=== PATIENT | male | born 1955 | race Caucasian/White ===

== ENCOUNTER 2019-07-30 12:33 | Inpatient (IN) ==
[2019-07-30] MEDS ORDERED: LACTATED RINGERS 1,000 ML IV ONE (12:47)
[2019-07-30] MEDS ORDERED: ONDANSETRON 4 MG/2 ML VIAL IV ONE (12:47)
--- NOTE | 2019-07-30 12:56 | Emergency Department Note ---
Abdominal Pain HPI - General Chief Complaint: Abdominal Pain Stated Complaint: RLQpain, nausea vomiting SOB Time Seen by Provider: 07/30/19 12:43 Source: EMS Mode of arrival: EMS - History of Present Illness HPI Narrative: This patient started having right-sided abdominal pain yesterday associated with some nausea. 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 He is now a dialysis patient. No associated diarrhea. Pain is somewhat constant aching. He has had a kidney stone but has not have one that is been painful since his renal transplant. - Related Data Home Medications Medication Instructions Recorded Confirmed Lactobacillus acidophilus 10 1 tab PO .daily cap 11/14/14 07/30/19 billion cell capsule calcitriol 0.25 mcg capsule 0.25 mcg PO QDAY cap 11/14/14 07/30/19 cholecalciferol (vitamin D3) 125 5,000 unit PO QDAY cap 11/14/14 07/30/19 mcg (5,000 unit) capsule digoxin 125 mcg (0.125 mg) tablet 125 mcg PO WEEKLY tab 11/14/14 07/30/19 febuxostat 80 mg tablet 80 mg PO QDAY tab 11/14/14 07/30/19 glipizide 5 mg tablet 5 mg PO BID tab 11/14/14 07/30/19 urwztjpbpuq-hxudzjajx-ssg C-Mn 500 2 cap PO .daily cap 11/14/14 07/30/19 mg-400 mg capsule prednisone 10 mg tablet 15 mg PO QDAY tab 11/14/14 07/30/19 prenat.vits,ezequiel,gsa-bvsf-jgsxb 1 tab-cap PO QDAY tab 11/14/14 07/30/19 Metoprolol Succinate [Toprol Xl] 25 mg PO DAILY 01/20/17 07/30/19 budesonide-formoterol HFA 160 2 puff INHALATION BID 02/23/18 07/30/19 mcg-4.5 mcg/actuation aerosol inhaler apixaban 5 mg tablet 5 mg PO BID 03/24/19 07/30/19 Magnesium Oxide [Magnesium] 400 mg PO DAILY 07/30/19 07/30/19 Midodrine [Midodrine HCl] 5 mg PO DAILY 07/30/19 07/30/19 Midodrine [Midodrine HCl] 5 mg PO TIDP PRN 07/30/19 07/30/19 Pantoprazole [Protonix] 40 mg PO DAILY 07/30/19 07/30/19 Sevelamer Carbonate 800 mg PO BIDCC 07/30/19 07/30/19 Simvastatin [Zocor] 20 mg PO HS 07/30/19 07/30/19 Vit A,C & E/Lutein/Minerals 1 tab PO DAILY 07/30/19 07/30/19 [Ocuvite] Allergies Allergy/AdvReac Type Severity Reaction Status Date / Time morphine [MORPHINE] AdvReac Intermediate DECREASE Verified 03/24/19 09:16 RESPIRAITONS Review of Systems All systems ED: reviewed and negative except as stated. Abdominal Pain PMH - Past Medical History [facility] Narrative: Medical History (Last Reviewed 03/24/19 @ 09:18 by Lisa Dorado RN) Bladder trabeculation (Acute) Renal failure (Acute) Hx of malignant neoplasm of urinary organ (Acute) Kidney stones (Acute) Hydronephrosis (Acute) Past Surgical History (Last Reviewed 03/24/19 @ 09:18 by Lisa Dorado RN) Blood clot in vein (Acute) Hx of tonsillectomy (Acute) Renal transplant, status post (Acute) H/O lithotripsy (Acute) History of right hip replacement (Acute) History of appendectomy (Acute) H/O adenoidectomy (Acute) Family History (Last Reviewed 03/24/19 @ 09:18 by Lisa Dorado RN) Mother Malignant neoplasm of brain Sister Malignant neoplasm of breast Father Diabetes mellitus Brother Non-Hodgkin's lymphoma - Social History Smoking status: Former smoker Physical Exam Limitations: no limitations General appearance: alert Head: atraumatic Eye: Present: normal appearance ENT: Present: normal exam Neck: Present: normal inspection Chest: Present: normal inspection Respiratory: Present: normal lung sounds bilaterally Cardiovascular: Present: regular rate, normal rhythm, normal heart sounds Abdominal: Present: soft, tenderness, other (Massively obese). Absent: distention, guarding Abdominal tenderness: Present: diffuse, mild Neurological: Present: alert Psychiatric: Present: normal affect Skin: Present: warm, dry Course Vital Signs Blood Pressure 118/94 07/30/19 12:42 Pulse Oximetry (%) 94 07/30/19 12:42 Temperature 99.9 F H 07/30/19 17:20 Pulse Rate 85 07/30/19 16:14 Respiratory Rate 22 07/30/19 16:14 Blood Pressure 88/70 07/30/19 15:31 Pulse Oximetry (%) 96 07/30/19 16:14 Abdominal Pain - MDM Narrative Medical decision making narrative: This patient had a white count of 24,000 and a lactic acid of 8.7. CT scan of chest was suggestive of lower lobe infiltrates but not definite. There was also concern about a tumor in his renal transplant kidney. Also concerned about possible metastases in his lungs. Patient was cultured and treated with Levaquin vancomycin and Zosyn. I discussed this case with Dr. Reddy his camera repairman and Dr. Luo the hospitalist and he will be admitted to the ICU. - Lab Data Lab results reviewed: Yes I reviewed the patient's lab results. Result diagrams: 07/30/19 13:00 07/30/19 13:00 Lab Results 07/30/19 07/30/19 07/30/19 Range/Units 13:00 13:00 13:00 WBC 24.1 H (4.50-11.00) K/mcL RBC 4.37 L (4.63-6.08) M/mcL Hgb 12.6 L (13.7-17.5) g/dL Hct 41.2 (40.1-51.0) % MCV 94.3 (80.0-100.0) fL MCH 28.8 (26.0-34.0) pg MCHC 30.6 L (31.0-36.0) g/dL RDW 16.6 H (11.5-14.5) % Plt Count 222 (140-440) K/mcL MPV 9.7 (7.4-10.4) fL Gran % 88.1 H (38.0-78.0) % Lymph % (Auto) 3.5 L (15.5-49.0) % [place] % (Auto) 8.0 (1.0-12.0) % Eos % (Auto) 0.2 (0.0-7.0) % Baso % (Auto) 0.2 (0.0-2.0) % Gran # 21.27 H (1.80-8.00) K/mcL Lymph # (Auto) 0.85 L (1.50-4.80) K/mcL [place] # (Auto) 1.92 H (0.10-0.90) K/mcL Eos # (Auto) 0.04 (0.00-0.70) K/mcL Baso # (Auto) 0.05 (0.00-0.30) K/mcL Differential Comment VBG Lactic Acid 8.7 H* (0.5-2.0) mmol/L Sodium 138 (133-145) mmol/L Potassium 4.0 (3.3-5.1) mmol/L Chloride 90 L (96-108) mmol/L Carbon Dioxide 23 (22-30) mmol/L Anion Gap 25.0 H (8-16) BUN 52 H (8-23) mg/dl Creatinine 7.0 H* (0.7-1.2) mg/dl GFR Calculation 8 Glucose 114 H (70-105) mg/dL Calcium 9.6 (8.6-10.4) mg/dl Total Bilirubin 0.6 (0.0-1.0) mg/dL AST 23 (0-37) U/l ALT 13 (0-40) U/l Alkaline Phosphatase 72 (39-117) U/L Total Protein 7.6 (5.9-8.4) gm/dL Albumin 3.8 (3.2-5.2) gm/dL Globulin 3.8 H (2.2-3.7) gm/dL Albumin/Globulin Ratio 1.0 (1.0-2.3) Lipase 27 (7-60) U/L - Radiology Data Radiology results reviewed: Yes I reviewed the patient's radiology results. Disposition Pt seen by [facility] PATTERN[facility]KER/PA only: No Clinical Impression: Sepsis Disposition: Xfer As Inpt ([facility]) Condition: Fair Referrals: Nicol Mcdowell MD [Primary Care Provider] - Time of Disposition: 17:23
[2019-07-30 14:13] LABS: Basophils # (Auto) 0.05 K/mcL (0.00-0.30); Basophils % (Auto) 0.2 % (0.0-2.0); Eosinophils # (Auto) 0.04 K/mcL (0.00-0.70); Eosinophils % (Auto) 0.2 % (0.0-7.0); Granulocytes % (Auto) 88.1 % (38.0-78.0); Hematocrit 41.2 % (40.1-51.0); Hemoglobin 12.6 g/dL (13.7-17.5); Lymphocytes # (Auto) 0.85 K/mcL (1.50-4.80); Lymphocytes % (Auto) 3.5 % (15.5-49.0); Mean Cell Volume 94.3 fL (80.0-100.0); Mean Corpuscular HGB Conc 30.6 g/dL (31.0-36.0); Mean Platelet Volume 9.7 fL (7.4-10.4); Monocytes # (Auto) 1.92 K/mcL (0.10-0.90); Platelet Count 222 K/mcL (140-440); RBC 4.37 M/mcL (4.63-6.08); Red Cell Distribution Width 16.6 % (11.5-14.5); WBC 24.1 K/mcL (4.50-11.00)
[2019-07-30 14:14] LABS: ALT/SGPT 13 U/l (0-40); AST/SGOT 23 U/l (0-37); Albumin 3.8 gm/dL (3.2-5.2); Alkaline Phosphatase 72 U/L (39-117); Bilirubin,Total 0.6 mg/dL (0.0-1.0); Blood Urea Nitrogen 52 mg/dl (8-23); Calcium 9.6 mg/dl (8.6-10.4); Carbon Dioxide 23 mmol/L (22-30); Chloride 90 mmol/L (96-108); Globulin 3.8 gm/dL (2.2-3.7); Glomerular Filtration Rate 8; Glucose 114 mg/dL (70-105)
[2019-07-30] MEDS ORDERED: PIPERACILLIN SODIUM/TAZOBACTAM 3.375 GM in DEXTROSE 5% IN WATER 50 ML IV ONE (15:03)
[2019-07-30] MEDS ORDERED: LEVOFLOXACIN 750 MG/150 ML BAG IV ONE (15:03)
[2019-07-30] MEDS ORDERED: VANCOMYCIN 1,500 MG in 0.9 % SODIUM CHLORIDE 500 ML IV ONE (15:03)
--- NOTE | 2019-07-30 15:37 | Cat Scan Report ---
CLINICAL INFORMATION: Abdominal pain with elevated white blood cell count COMPARISON: Chest x-ray 01/29/2016. TECHNIQUE: Enteric contrast was utilized. 80 cc of Isovue-370 were injected intravenously, and 50 seconds later 2.5 mm helical slices were obtained from the lung apices through the subtrochanteric regions of the femurs. Following reconstruction, 2.5 mm sagittal, coronal and axial reformatted images were processed and reviewed at multiple windows and levels. 7 mm MIP reconstructions were obtained through the lungs to optimize nodule detection.The exam was performed using radiation dose optimization techniques including, but not limited to, automated exposure control, adjustment of the mA and/or kV according to patient size and use of iterative reconstruction technique. FINDINGS: Pulmonary parenchymal windows show moderate patchy atelectasis or, less likely, infiltrate in the posterior medial lower lobes. Multiple well-circumscribed nodules are predominantly within the right lower lobe but also scattered in the left lower and both upper lobes. They range up to 8 mm. These could represent granulomas or metastases from an unknown primary carcinoma. The mediastinal windows show the heart is moderately enlarged and with calcification in the mitral annulus and scattered calcific plaque in the coronary arteries. The noncontrast thoracic aorta and pulmonary arteries are normal in diameter. There is no adenopathy in the mediastinal hilar or axillary regions. The esophagus is grossly normal. Thyroid is unremarkable. Abdominal images show the noncontrasted gallbladder and bile ducts, liver, both adrenal glands, spleen, pancreas and aorta to be normal in size, configuration and attenuation without focal lesion. Severe bilateral renal atrophy compatible end-stage renal failure appreciated. There is a 16 mm simple cyst in the left kidney and a few smaller cysts in both kidneys. There is no free air, free fluid or adenopathy Pelvic images show urinary bladder is decompressed with diffuse wall thickening - likely artifact of under distention. Prostate and seminal vesicles are normal. An 11 x 4.5 cm renal transplant in the right iliac fossa appreciated. There are cluster of 3-4 nonobstructing stones in the inferior calyces ranging up to 1 cm. An 11 mm hyperdense lesion in the inferior pole right kidney is almost totally hyperdense cyst. A 4.2 cm simple cyst is seen medial superior pole of the transplant. A 3.3 cm indeterminate low-attenuation lesion is noted in the lateral superior pole. The stomach, small and large bowel are grossly normal. Bone windows show no focal osseous abnormality. Right total hip prostheses is anatomically aligned without loosening or infection. IMPRESSION: 1. Moderate regions of atelectasis or infiltrate in both posterior medial lower lobes. 2. Scattered well-defined nodules scattered throughout both lungs - predominantly in the right lower lobe. These could represent metastases from an unknown primary carcinoma or granulomas. 3. Severe bilateral renal atrophy compatible with end-stage renal failure. 4. Normal sized renal transplant seen in the right iliac fossa. Within the transplant, there is a 3.3 cm indeterminate low-attenuation lesion in the lateral superior pole. A 10 mm hyperdense lesion in the inferior pole may represent a hyperdense cyst or, less likely, a solid lesion. There is a 4.2 cm simple cyst in the medial superior pole. Suggest ultrasound renal transplant to evaluate whether the lesions are solid versus cystic. If any are solid, then a could represent primary renal cell carcinoma and account for pulmonary metastases 5. A cluster of 3-4 nonobstructing stones stones, ranging up to 1 cm, in the inferior calyx of the right renal transplant. 6. Moderate cardiomegaly. Interpreted and Authenticated by: Terence Black 07/30/19
[2019-07-30] MEDS ORDERED: LORazepam 2 MG/ML VIAL IV ONE (16:40)
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
[2019-07-30] MEDS ORDERED: VANCOMYCIN PER PHARMACY IV SCH (19:39)
[2019-07-30] MEDS ORDERED: LACTULOSE 20 GM/30 ML ORAL.SOL PO PRN (19:39)
[2019-07-30] MEDS ORDERED: IPRATROPIUM/ALBUTEROL 3 ML AMPUL.NEB NEB PRN (19:39)
[2019-07-30] MEDS ORDERED: ONDANSETRON 4 MG/2 ML VIAL IV PRN (19:39)
[2019-07-30] MEDS ORDERED: ACETAMINOPHEN 325 MG TABLET PO PRN (19:39)
[2019-07-30] MEDS ORDERED: HYDROcodone/APAP 5/325MG TABLET PO PRN (19:39)
[2019-07-30] MEDS ORDERED: DEXTROSE 50% 50 ML VIAL IV PRN (20:03)
[2019-07-30] MEDS ORDERED: DEXTROSE 31 GM ORAL.SUSP PO PRN (20:03)
[2019-07-30] MEDS ORDERED: SENNOSIDES 1 TABLET PO PRN (21:00)
[2019-07-30] MEDS ORDERED: HEPARIN 5,000 UNIT/ML VIAL SQ SCH (21:00)
[2019-07-30] MEDS: INSULIN LISPRO 1 UNIT/0.01 ML UNIT SQ SCH (22:36)
[2019-07-30] MEDS: 0.9 % SODIUM CHLORIDE 10 ML SYRINGE IV SCH (22:36)
[2019-07-30] MEDS: SIMVASTATIN 20 MG TABLET PO SCH (22:41)
[2019-07-30] MEDS: DOCUSATE SODIUM 100 MG CAPSULE PO SCH (22:41)
[2019-07-30] MEDS: APIXABAN 5 MG TABLET PO SCH (22:41)
[2019-07-31] MEDS: PIPERACILLIN SODIUM/TAZOBACTAM 2.25 GM in DEXTROSE 5% IN WATER 50 ML IV SCH ×2 (03:14→18:51)
[2019-07-31 05:14] LABS: Basophils # (Auto) 0.02 K/mcL (0.00-0.30); Basophils % (Auto) 0.1 % (0.0-2.0); Eosinophils # (Auto) 0.01 K/mcL (0.00-0.70); Eosinophils % (Auto) 0.1 % (0.0-7.0); Granulocytes % (Auto) 87.2 % (38.0-78.0); Hematocrit 37.7 % (40.1-51.0); Hemoglobin 11.3 g/dL (13.7-17.5); Lymphocytes % (Auto) 7.2 % (15.5-49.0); Mean Cell Volume 94.7 fL (80.0-100.0); Mean Platelet Volume 9.6 fL (7.4-10.4); Monocytes # (Auto) 0.82 K/mcL (0.10-0.90); Monocytes % (Auto) 5.4 % (1.0-12.0); Platelet Count 195 K/mcL (140-440); RBC 3.98 M/mcL (4.63-6.08); Red Cell Distribution Width 16.5 % (11.5-14.5); WBC 15.2 K/mcL (4.50-11.00)
[2019-07-31 05:37] LABS: ALT/SGPT 13 U/l (0-40); AST/SGOT 38 U/l (0-37); Albumin 3.2 gm/dL (3.2-5.2); Albumin/Globulin Ratio 0.8 (1.0-2.3); Alkaline Phosphatase 60 U/L (39-117); Bilirubin,Direct 0.2 mg/dL (0.0-0.3); Bilirubin,Total 0.5 mg/dL (0.0-1.0); Blood Urea Nitrogen 72 mg/dl (8-23); Carbon Dioxide 25 mmol/L (22-30); Chloride 92 mmol/L (96-108); Globulin 3.9 gm/dL (2.2-3.7); Glomerular Filtration Rate 6; Glucose 61 mg/dL (70-105); Lactate Dehydrogenase 325 U/L (94-250); Phosphorous 7.8 mg/dL (2.7-4.5); Triglycerides 181 mg/dl (<150); Uric Acid 2.7 mg/dL (2.5-8.0)
[2019-07-31] MEDS: 0.9 % SODIUM CHLORIDE 10 ML SYRINGE IV SCH ×3 (05:44→22:52)
[2019-07-31] MEDS: predniSONE 5 MG TABLET PO SCH (08:24)
[2019-07-31] MEDS: SEVELAMER 800 MG TABLET PO SCH ×2 (08:24→18:51)
[2019-07-31] MEDS: PANTOPRAZOLE 40 MG TABLET PO SCH (08:24)
--- NOTE | 2019-07-31 08:25 | Ultrasound Report ---
History: Transplanted kidney in the right side of the pelvis which contains an indeterminate low-attenuation lesion seen on a recent CT scan. Patient has multiple pulmonary nodules of undetermined etiology. FINDINGS: Patient was technically difficult to scan due to severe obesity. The atrophic [place] right kidney cannot be visualized. Left kidney is partially visualized contain several low-attenuation hypoechoic structures which are probably cysts. However, hypoechoic solid mass cannot be excluded. There also appears to be a nonobstructing stone in the midportion of the left kidney. No hydronephrosis is present in the left kidney. The patient has a transplanted kidney in the right side of the pelvis which is also very difficult to visualize due to patient body habitus. It contains several hypoechoic structures. The largest measures 3.2 x 3.2 x 4.2 cm. This is probably a cyst but a solid hypoechoic mass cannot be excluded. In the mid to upper portion of the transplanted kidney there is a 1 cm simple cyst. There are also several moderate size calculi in the collecting system of the right kidney which measure up to 2.4 cm. There is no hydronephrosis. The vessels to the transplanted kidney cannot be evaluated. IMPRESSION: Limited study due to patient body habitus. Hypoechoic 3.2 x 4.2 cm structure in the transplanted right kidney which is more likely a cyst than a neoplasm. Abdomen and pelvic MRI may be helpful for further evaluation. Atrophic [place] kidneys and nonvisualization of the right kidney and poor visualization of the left. There are cysts in the left kidney and a nonobstructing stone. A solid mass in the left kidney cannot be excluded. Interpreted and Authenticated by: Abel Ponce 07/31/19
[2019-07-31] MEDS: INSULIN LISPRO 1 UNIT/0.01 ML UNIT SQ SCH ×3 (08:28→18:49)
[2019-07-31] MEDS: MAGNESIUM OXIDE 400 MG TABLET PO SCH (09:48)
[2019-07-31] MEDS: VIT A,C & E/LUTEIN/MINERALS TABLET PO SCH (09:48)
[2019-07-31] MEDS: APIXABAN 5 MG TABLET PO SCH ×2 (09:48→21:47)
[2019-07-31] MEDS: DOCUSATE SODIUM 100 MG CAPSULE PO SCH ×2 (09:48→21:47)
[2019-07-31] MEDS: CALCITRIOL 0.25 MCG CAPSULE PO SCH (09:48)
[2019-07-31] MEDS: MIDODRINE 5 MG TABLET PO SCH (09:54)
[2019-07-31] MEDS: METOPROLOL SUCCINATE 25 MG TAB.XL.24H PO SCH (11:13)
--- NOTE | 2019-07-31 11:42 | Internal Med Progress Note ---
Medical - PN: Subj Patient information: Note initiated : 07/31/19 at 11:40 am Service Date, if different from initiated Date: [] Patient: Ivan Robles a 64 y/o M admitted on 07/30/19 for RLQpain, nausea vomiting SOB. Chief Complaint: [] Interval history: Mr. Robles is a 64 year old M with a history of end-stage renal disease, status post failed renal transplant, now on home hemodialysis, obstructive sleep apnea , chronic steroid use, type 2 diabetes, hyperlipidemia, atrial fibrillation on anticoagulation who presents the ED with about 1 days of illness. Patient dialyzed yesterday. He normally gets dialysis 5 days a week at home. Postdialysis he had some nausea with little bit of emesis. Started developing some pain in his abdomen following that. At about 430 this morning he had a temperature to 103.1. He became progressively weak. Initially his was going to drive him to the hospital, he is too weak to do so and fell a couple times eventually prompting a call to EMS. In the emergency department, the patient is afebrile, he has tachycardia with atrial fibrillation/RVR, blood pressures are low normal (which is normal for him, he uses midodrine to help sustain blood pressure). However white count was 24,000 and lactate was 8.7. There is concern for sepsis given his presentation and fever earlier in the morning. Given his vague abdominal complaints, CT scan of the abdomen and pelvis was done, chest was also included. Does have some patchy atelectatic/infiltrative changes in the bases, and findings of nodularity and cyst versus mass in his transplanted kidney. However no evidence of biliary disease, no diverticulitis, no abscesses noted. The patient overall feels weak. Not necessarily dyspneic. He has not had a bowel movement last couple of days. He has had no recent antibiotic exposures. No ill contacts. He did get a flu shot this year. He is currently on prednis one at 15 mg a day. They have been attempting to wean down his steroids after he went off immunosuppression following the failure of his transplanted kidney. They weaned it down to 5, he became symptomatic and they increased it to 20, which he took for 3 days, now is in the middle of 15 mg daily. Glucoses have been well controlled, hemoglobin A1c in the 6% range at last check. 3/2 Patient somewhat somnolent confused today. BUN and creatinine have risen overnight. Poor IV access. Difficulty in obtaining accurate blood pressure due to limitations of where the cuff can be placed. However patient is mentating even with low readings. Do not feel this represents hypotension secondary to s epsis, but is his usual state. Does use midodrine daily. Cultures negative so far. - Constitutional Vitals: Vital Signs Temp Pulse Resp BP Pulse Ox 100.2 F H 123 H 28 H 83/68 92 07/31/19 08:54 07/31/19 10:04 07/31/19 10:04 07/31/19 10:01 07/31/19 02:00 Period Temp Pulse Resp BP Sys/Valerio Pulse Ox Last 24 Hr 97.8 F-100.2 F 85-126 17-37 38-206/15-178 89-97 Intake and Output 07/30/19 07/31/19 07/31/19 21:59 05:59 13:59 Intake Total 940 50 Output Total 0 Balance 940 50 Weight 336 lb 9.6 oz 336 lb 9.6 oz Patient Weight 08/01/19 05:59 Weight 336 lb 9.6 oz Intake & Output: Intake & Output 07/30/19 07/31/19 07/31/19 21:59 05:59 13:59 Intake Total 940 50 Output Total 0 Balance 940 50 Weight 336 lb 9.6 oz 336 lb 9.6 oz Intake: IV 700 50 Zosyn 2.25 gm In Dextrose 5% in 50 Water 50 ml @ 100 mls/hr IV Q12H [facility] Rx#:[id number] Zosyn 3.375 gm In Dextrose 5% 50 in Water 50 ml @ 100 mls/hr IV ONCE ONE Rx#:[id number] Vancomycin 1,500 mg In Sodium 500 Chloride 0.9% 500 ml @ 333.3 mls/hr IV ONCE ONE Rx#: [id number] Oral 240 0 Output: Void Amount 0 Exam: General: Appears uncomfortable, in bed. Drifts off. Lower extremities tremulous. Chest: Bibasilar crackles, respirations are unlabored Cardiovascular: Regular with murmur, unchanged. Extremities: Left arm fistula intact Abdomen: Obese, soft, active bowel sounds Neuro: Drowsy, awakes, responses are mumbled at times. Daughter notes this is similar to when his BUN becomes elevated. Medical - PN: Obj Da - Labs CBC & Chem 7: 07/31/19 04:10 07/31/19 04:10 Labs: Abnormal Lab Results 07/31/19 07/31/19 07/30/19 04:10 04:10 20:25 WBC 15.2 H RBC 3.98 L Hgb 11.3 L Hct 37.7 L MCHC 30.0 L RDW 16.5 H Gran % 87.2 H Lymph % (Auto) 7.2 L Gran # 13.25 H Lymph # (Auto) 1.[address] [place] # (Auto) VBG Lactic Acid 3.0 H Potassium 6.1 H* Chloride 92 L Anion Gap 22.0 H BUN 72 H Creatinine 8.4 H* Glucose 61 L Phosphorus 7.8 H* Magnesium 2.8 H GGT 68 H AST 38 H Lactate Dehydrogenase 325 H Globulin 3.9 H Albumin/Globulin Ratio 0.8 L Triglycerides 181 H 07/30/19 07/30/19 07/30/19 13:00 13:00 13:00 WBC 24.1 H RBC 4.37 L Hgb 12.6 L Hct MCHC 30.6 L RDW 16.6 H Gran % 88.1 H Lymph % (Auto) 3.5 L Gran # 21.27 H Lymph # (Auto) 0.[address] [place] # (Auto) 1.92 H VBG Lactic Acid 8.7 H* Potassium Chloride 90 L Anion Gap 25.0 H BUN 52 H Creatinine 7.0 H* Glucose 114 H Phosphorus Magnesium GGT AST Lactate Dehydrogenase Globulin 3.8 H Albumin/Globulin Ratio Triglycerides Meds: Medications Acetaminophen (Tylenol) 650 mg PO Q6HP PRN; Protocol PRN Reason: Per Pain Protocol/Fever > 101 Hydrocodone Bitart/Acetaminophen ([place] 5/325mg) 1 tab PO Q4HP PRN; Protocol PRN Reason: Per Pain Protocol Albuterol/Ipratropium (Duoneb) 3 ml NEB Q4HP PRN PRN Reason: Dyspnea Apixaban (Eliquis) 5 mg PO BID [facility] Last Admin: 07/31/19 09:48 Dose: 5 mg Documented by: Calcitriol (Rocaltrol) 0.25 mcg PO QDAY [facility] Last Admin: 07/31/19 09:48 Dose: 0.25 mcg Documented by: Dextrose (Dextrose 50%) 0 ml IV UD PRN PRN Reason: Hypoglycemia Diagnostic Test (Pha) (Accu-Chek) 1 each FS ACHS [facility] Last Admin: 07/31/19 08:25 Dose: 1 each Documented by: Docusate Sodium (Colace) 100 mg PO BID [facility] Last Admin: 07/31/19 09:48 Dose: 100 mg Documented by: Glucose (Insta-Glucose) 15 gm PO PRN PRN PRN Reason: Hypoglycemia Levofloxacin (Levaquin) 500 mg in 100 mls @ 100 mls/hr IV Q48H [facility]; Protocol Piperacillin Sod/Tazobactam (Sod 2.25 gm/ Dextrose) 50 mls @ 100 mls/hr IV Q12H [facility]; Protocol Last Infusion: 07/31/19 03:44 Dose: Infused Documented by: Insulin Human Lispro (Humalog) 0 unit SQ [facility]; Protocol Last Admin: 07/31/19 08:28 Dose: Not Given Documented by: Lactulose (Cephulac) 10 gm PO DAILYP PRN PRN Reason: Constipation Magnesium Oxide (Magnesium Oxide) 400 mg PO DAILY [facility] Last Admin: 07/31/19 09:48 Dose: 400 mg Documented by: Metoprolol Succinate (Toprol Xl) 25 mg PO DAILY [facility] Last Admin: 07/31/19 11:13 Dose: Not Given Documented by: Midodrine (Midodrine Hcl) 5 mg PO DAILY [facility] Last Admin: 07/31/19 09:54 Dose: 5 mg Documented by: Multivitamins/Minerals (Ocuvite) 1 tab PO DAILY [facility] Last Admin: 07/31/19 09:48 Dose: 1 tab Documented by: Ondansetron HCl (Zofran) 4 mg IV Q4HP PRN; Protocol PRN Reason: Nausea And Vomiting Pantoprazole Sodium (Protonix) 40 mg PO ACB [facility] Last Admin: 07/31/19 08:24 Dose: 40 mg Documented by: Prednisone (Prednisone) 15 mg PO QAMCC [facility] Last Admin: 07/31/19 08:24 Dose: 15 mg Documented by: Senna (Senokot) 2 tab PO HSP PRN PRN Reason: Constipation Sevelamer Carbonate (Renvela) 800 mg PO BIDCC [facility] Last Admin: 07/31/19 08:24 Dose: 800 mg Documented by: Simvastatin (Zocor) 20 mg PO [facility] Last Admin: 07/30/19 22:41 Dose: 20 mg Documented by: Sodium Chloride (Saline Flush) 10 ml IV Q8 [facility] Last Admin: 07/31/19 05:44 Dose: 10 ml Documented by: Vancomycin HCl (Vancomycin Per Pharmacy) 1 order IV UD [facility]; Protocol - Impressions Renal U/S IMPRESSION: -Limited study due to patient body habitus. -Hypoechoic 3.2 x 4.2 cm structure in the transplanted right kidney which is more likely a cyst than a neoplasm. Abdomen and pelvic MRI may be helpful for further evaluation. -Atrophic [place] kidneys and nonvisualization of the right kidney and poor visualization of the left. There are cysts in the left kidney and a nonobstructing stone. A solid mass in the left kidney cannot be excluded. Medical - PN: A/P - Time Spent With Patient Total time spent is greater than 50% in coordination of care (as documented) at patient's floor/unit and/or counseling patient: - Narrative A/P Narrative: 64-year-old male with end-stage renal disease, failed transplant, still on prednisone presents with fever, found to have leukocytosis and lactate of 8.7. #Rule out septic shock. Improving. White count down to 15,000, lactate improved. Concern that his leukocytosis, fever and lactate represent infection, which would be septic shock with evidence of endorgan dysfunction (lactate elevation). Possible pneumonia, though he does not have prominent pulmonary symptoms. Bloodstream infection certainly concerning with his 5 times a week hemodialysis. He dialyzes with a shunt on the left arm, which has no surrounding erythema or evidence of infection. No evidence of biliary disease on scanning, no other intra-abdominal process noted. He is not having diarrhea nor has inflammatory change in the colon, but always concerned about C. difficile with a white count is high. Patient did not receive full 30 mL/KG resuscitation secondary to clinician judgment in setting of end-stage renal disease and patient who anuric and at high risk for respiratory failure. He received modified bolus in the ED. Sepsis reperfusion exam performed 17:15hrs #End-stage renal disease. Dialyzes 5 times a week at home with hemodialysis. Dr. Reddy's been consulted from the ED. #Atrial fibrillation. On metoprolol and weekly digoxin for rate control. #Hypotension. Patient takes midodrine daily with up to 3 other doses a day as needed for low blood pressure. #Abnormal CT. Cyst versus mass and transplanted kidney, scattered nodules in the lungs, particularly on right. -Ultrasound of transplanted kidney with evidence of cyst and not mass -We will likely need follow-up CT in convalescence #Type 2 diabetes mellitus on glipizide at home with good control #Obstructive sleep apnea. On CPAP at home. Plan: Follow-up blood cultures, no growth today No urine culture, patient is anuric Continue vancomycin, levofloxacin and pip/tazo Hemodialysis today for volume overload and electrolyte abnormalities Reevaluate mental status after dialysis Continue metoprolol and apixaban for atrial fibrillation Holding digoxin for now Home CPAP Renal diet Accu-Cheks a.m. sliding scale insulin Continue home daily Midodrine Prophylaxis: Home apixaban CODE STATUS: Full code
[2019-07-31] MEDS ORDERED: MIDODRINE 5 MG TABLET PO PRN (12:29)
--- NOTE | 2019-07-31 13:51 | Internal Med Progress Note ---
Medical - PN: Subj Patient information: Note initiated : 07/31/19 at 1:49 pm Service Date, if different from initiated Date: [] Patient: Ivan Robles a 64 y/o M admitted on 07/30/19 for RLQpain, nausea vomiting SOB. Chief Complaint: [] Interval history: Mr. Robles is a 64 year old M with a history of end-stage renal disease, status post failed renal transplant, now on home hemodialysis, obstructive sleep apnea , chronic steroid use, type 2 diabetes, hyperlipidemia, atrial fibrillation on anticoagulation who presents the ED with about 1 days of illness. Patient dialyzed yesterday. He normally gets dialysis 5 days a week at home. Postdialysis he had some nausea with little bit of emesis. Started developing some pain in his abdomen following that. At about 430 this morning he had a temperature to 103.1. He became progressively weak. Initially his was going to drive him to the hospital, he is too weak to do so and fell a couple times eventually prompting a call to EMS. In the emergency department, the patient is afebrile, he has tachycardia with atrial fibrillation/RVR, blood pressures are low normal (which is normal for him, he uses midodrine to help sustain blood pressure). However white count was 24,000 and lactate was 8.7. There is concern for sepsis given his presentation and fever earlier in the morning. Given his vague abdominal complaints, CT scan of the abdomen and pelvis was done, chest was also included. Does have some patchy atelectatic/infiltrative changes in the bases, and findings of nodularity and cyst versus mass in his transplanted kidney. However no evidence of biliary disease, no diverticulitis, no abscesses noted. The patient overall feels weak. Not necessarily dyspneic. He has not had a bowel movement last couple of days. He has had no recent antibiotic exposures. No ill contacts. He did get a flu shot this year. He is currently on prednis one at 15 mg a day. They have been attempting to wean down his steroids after he went off immunosuppression following the failure of his transplanted kidney. They weaned it down to 5, he became symptomatic and they increased it to 20, which he took for 3 days, now is in the middle of 15 mg daily. Glucoses have been well controlled, hemoglobin A1c in the 6% range at last check. 3/2 Patient somewhat somnolent confused today. BUN and creatinine have risen overnight. Poor IV access. Difficulty in obtaining accurate blood pressure due to limitations of where the cuff can be placed. However patient is mentating even with low readings. Do not feel this represents hypotension secondary to s epsis, but is his usual state. Does use midodrine daily. Cultures negative so far. - Constitutional Vitals: Vital Signs Temp Pulse Resp BP Pulse Ox 100.2 F H 123 H 28 H 83/68 92 07/31/19 08:54 07/31/19 10:04 07/31/19 10:04 07/31/19 10:01 07/31/19 02:00 Period Temp Pulse Resp BP Sys/Valerio Pulse Ox Last 24 Hr 97.8 F-100.2 F 85-126 17-37 38-206/15-178 89-97 Intake and Output 07/30/19 07/31/19 07/31/19 21:59 05:59 13:59 Intake Total 940 50 Output Total 0 Balance 940 50 Weight 152.679 kg 152.679 kg Patient Weight 08/01/19 05:59 Weight 152.679 kg Intake & Output: Intake & Output 07/30/19 07/31/19 07/31/19 21:59 05:59 13:59 Intake Total 940 50 Output Total 0 Balance 940 50 Weight 152.679 kg 152.679 kg Intake: IV 700 50 Zosyn 2.25 gm In Dextrose 5% in 50 Water 50 ml @ 100 mls/hr IV Q12H [facility] Rx#:[id number] Zosyn 3.375 gm In Dextrose 5% 50 in Water 50 ml @ 100 mls/hr IV ONCE ONE Rx#:[id number] Vancomycin 1,500 mg In Sodium 500 Chloride 0.9% 500 ml @ 333.3 mls/hr IV ONCE ONE Rx#: [id number] Oral 240 0 Output: Void Amount 0 Exam: General: , No acute Distress Eyes/N/T: EOMI, Head/Neck: neck supple, CV: RRR, 2/6 SM, Pulm: b/l rales, no wheezing Abd: soft, nontender, +BS x4 Ext: no clubbing/cyanosis, b/l LE + edema. LUE fistula Neuro: drowsy but awakens , moves all extremities, Skin: warm/dry Medical - PN: Obj Da - Labs CBC & Chem 7: 07/31/19 04:10 07/31/19 04:10 Labs: Abnormal Lab Results 07/31/19 07/31/19 07/30/19 04:10 04:10 20:25 WBC 15.2 H RBC 3.98 L Hgb 11.3 L Hct 37.7 L MCHC 30.0 L RDW 16.5 H Gran % 87.2 H Lymph % (Auto) 7.2 L Gran # 13.25 H Lymph # (Auto) 1.10 L [place] # (Auto) VBG Lactic Acid 3.0 H Potassium 6.1 H* Chloride 92 L Anion Gap 22.0 H BUN 72 H Creatinine 8.4 H* Glucose 61 L Phosphorus 7.8 H* Magnesium 2.8 H GGT 68 H AST 38 H Lactate Dehydrogenase 325 H Globulin 3.9 H Albumin/Globulin Ratio 0.8 L Triglycerides 181 H 07/30/19 07/30/19 07/30/19 13:00 13:00 13:00 WBC 24.1 H RBC 4.37 L Hgb 12.6 L Hct MCHC 30.6 L RDW 16.6 H Gran % 88.1 H Lymph % (Auto) 3.5 L Gran # 21.27 H Lymph # (Auto) 0.85 L [place] # (Auto) 1.92 H VBG Lactic Acid 8.7 H* Potassium Chloride 90 L Anion Gap 25.0 H BUN 52 H Creatinine 7.0 H* Glucose 114 H Phosphorus Magnesium GGT AST Lactate Dehydrogenase Globulin 3.8 H Albumin/Globulin Ratio Triglycerides Meds: Medications Acetaminophen (Tylenol) 650 mg PO Q6HP PRN; Protocol PRN Reason: Per Pain Protocol/Fever > 101 Hydrocodone Bitart/Acetaminophen ([place] 5/325mg) 1 tab PO Q4HP PRN; Protocol PRN Reason: Per Pain Protocol Albuterol/Ipratropium (Duoneb) 3 ml NEB Q4HP PRN PRN Reason: Dyspnea Apixaban (Eliquis) 5 mg PO BID [facility] Last Admin: 07/31/19 09:48 Dose: 5 mg Documented by: Calcitriol (Rocaltrol) 0.25 mcg PO QDAY [facility] Last Admin: 07/31/19 09:48 Dose: 0.25 mcg Documented by: Dextrose (Dextrose 50%) 0 ml IV UD PRN PRN Reason: Hypoglycemia Diagnostic Test (Pha) (Accu-Chek) 1 each FS ACHS [facility] Last Admin: 07/31/19 13:03 Dose: 1 each Documented by: Docusate Sodium (Colace) 100 mg PO BID [facility] Last Admin: 07/31/19 09:48 Dose: 100 mg Documented by: Glucose (Insta-Glucose) 15 gm PO PRN PRN PRN Reason: Hypoglycemia Levofloxacin (Levaquin) 500 mg in 100 mls @ 100 mls/hr IV Q48H [facility]; Protocol Piperacillin Sod/Tazobactam (Sod 2.25 gm/ Dextrose) 50 mls @ 100 mls/hr IV Q12H [facility]; Protocol Last Infusion: 07/31/19 03:44 Dose: Infused Documented by: Insulin Human Lispro (Humalog) 0 unit SQ [facility]; Protocol Last Admin: 07/31/19 13:03 Dose: Not Given Documented by: Lactulose (Cephulac) 10 gm PO DAILYP PRN PRN Reason: Constipation Magnesium Oxide (Magnesium Oxide) 400 mg PO DAILY [facility] Last Admin: 07/31/19 09:48 Dose: 400 mg Documented by: Metoprolol Succinate (Toprol Xl) 25 mg PO DAILY [facility] Last Admin: 07/31/19 11:13 Dose: Not Given Documented by: Midodrine (Midodrine Hcl) 5 mg PO DAILY [facility] Last Admin: 07/31/19 09:54 Dose: 5 mg Documented by: Midodrine (Midodrine Hcl) 5 mg PO TIDP PRN PRN Reason: Hypotension Last Admin: 07/31/19 12:53 Dose: 5 mg Documented by: Multivitamins/Minerals (Ocuvite) 1 tab PO DAILY [facility] Last Admin: 07/31/19 09:48 Dose: 1 tab Documented by: Ondansetron HCl (Zofran) 4 mg IV Q4HP PRN; Protocol PRN Reason: Nausea And Vomiting Pantoprazole Sodium (Protonix) 40 mg PO ACB [facility] Last Admin: 07/31/19 08:24 Dose: 40 mg Documented by: Prednisone (Prednisone) 15 mg PO QAMCC [facility] Last Admin: 07/31/19 08:24 Dose: 15 mg Documented by: Senna (Senokot) 2 tab PO HSP PRN PRN Reason: Constipation Sevelamer Carbonate (Renvela) 800 mg PO BIDCC [facility] Last Admin: 07/31/19 08:24 Dose: 800 mg Documented by: Simvastatin (Zocor) 20 mg PO HS [facility] Last Admin: 07/30/19 22:41 Dose: 20 mg Documented by: Sodium Chloride (Saline Flush) 10 ml IV Q8 [facility] Last Admin: 07/31/19 05:44 Dose: 10 ml Documented by: Vancomycin HCl (Vancomycin Per Pharmacy) 1 order IV UD [facility]; Protocol Medical - PN: A/P - Time Spent With Patient Total time spent is greater than 50% in coordination of care (as documented) at patient's floor/unit and/or counseling patient: - Narrative A/P Narrative: A: *Rule out septic shock: Improving. -Leukocytosis/lactate. Concern leukocytosis/fever/lactate represent infection, which would be septic shock w/endorgan dysfxn (lactate elevation). -Possible pneumonia, though he does not have prominent pulmonary symptoms -Bloodstream infection certainly concerning with his 5 times a week hemodialysis. He dialyzes with a shunt on the left arm, which has no surrounding erythema or evidence of infection. -No evidence of biliary disease on scanning, no other intra-abdominal process noted. -He is not having diarrhea nor has inflammatory change in the colon, but always concerned about C. difficile with a white count is high. -*Patient did not receive full 30 mL/KG resuscitation secondary to clinician judgment in setting of end-stage renal disease and patient who anuric and at high risk for respiratory failure. He received modified bolus in the ED. *ESRD, Dialyzes 5 times a week at home with hemodialysis: follows with dr. vail -failed renal transplant *Atrial fibrillation: On metoprolol and weekly digoxin for rate control. *Hypotension: Patient takes midodrine daily with up to 3 other doses a day as needed for low blood pressure. *Abnormal CT: Cyst versus mass and transplanted kidney, scattered nodules in the lungs, particularly on right. -Ultrasound of transplanted kidney with evidence of cyst and not mass -We will likely need follow-up CT in convalescence *Type 2 diabetes mellitus on glipizide at home with good control *TRAVIS: On CPAP at home. *Obese *COPD: cont home IH's Plan: Follow-up blood cultures, no growth today No urine culture, patient is anuric Continue vancomycin, levofloxacin and pip/tazo Nephro for HD today for volume overload and electrolyte abnormalities Reevaluate mental status after dialysis Continue metoprolol and apixaban for atrial fibrillation Holding digoxin for now Home CPAP Renal diet SSI -Continue home daily Midodrine -pt/ot -Prophylaxis: Home apixaban CODE STATUS: Full code
[2019-07-31] MEDS ORDERED: PHENYLEPHRINE 10 MG in 0.9 % SODIUM CHLORIDE 499 ML IV SCH (15:00)
[2019-07-31] MEDS ORDERED: METOPROLOL SUCCINATE 25 MG TAB.XL.24H PO ONE (15:00)
[2019-07-31] MEDS: 0.9 % SODIUM CHLORIDE 250 ML IV SCH ×3 (15:00→19:12)
[2019-07-31] MEDS ORDERED: VANCOMYCIN 1,500 MG in 0.9 % SODIUM CHLORIDE 500 ML IV PRN (15:25)
[2019-07-31] MEDS ORDERED: PIPERACILLIN SODIUM/TAZOBACTAM 2.25 GM in DEXTROSE 5% IN WATER 50 ML IV ONE (15:30)
[2019-07-31] MEDS: VASOPRESSIN 20 UNIT in DEXTROSE 5% IN WATER 99 ML IV SCH ×2 (15:58→22:46)
--- NOTE | 2019-07-31 16:05 | Consultation ---
DATE OF CONSULTATION: 07/31/2019 REASON FOR HOSPITALIZATION: The patient is a 64-year-old gentleman with history of end-stage renal disease status post failed kidney transplant, currently on home hemodialysis who presented with fever and shortness of breath. He also has a history of obstructive sleep apnea, chronic steroid use, type 2 diabetes, hyperlipidemia, atrial fibrillation on anticoagulation. He gets dialysis 5 days a week. His last dialysis was on Wednesday. He had a little bit of nausea and emesis after dialysis. Over the last two to three days, he has not been feeling well. He woke up this morning at 4:30 and had a temperature of 103.1. He became progressively weak. In the emergency room, he was found to be afebrile and tachycardic with rapid atrial fibrillation. Blood pressures were low. His white count was elevated. The lactic acid was 8.7. A CT scan of the abdomen and pelvis was done which showed patchy atelectatic infiltrates in the bases. There was a nodule or cyst in the transplanted kidney as well, but there was no evidence of a source of infection. Over the night, he felt somewhat more hypotensive. His oxygenation was also poor. For that reason, he has been placed on BiPAP. PAST MEDICAL HISTORY: Significant for: 1. Failed kidney transplant. 2. End-stage renal disease. 3. Type 2 diabetes. 4. Atrial fibrillation. 5. History of deep venous thrombosis in the past. 6. History of hyperlipidemia. 7. End-stage renal disease on home hemodialysis. 8. History of bladder neoplasm. 9. History of renal stones. 10. History of gout. PAST SURGICAL HISTORY: 1. Thrombectomy of his blood clot. 2. History of lithotripsy in the past. 3. Appendectomy. 4. History of tonsillectomy. 5. History of renal transplant. 6. Right total hip replacement. FAMILY HISTORY: There is history of malignant neoplasm of the breast and brain in the family. There is also history of non-Hodgkin's lymphoma in the family. SOCIAL HISTORY: He is a former smoker. No history of alcohol or drug use now. He stays at home with his . MEDICATIONS ON ADMISSION: 1. Lactobacillus one capsule a day. 2. Calcitriol 0.25 mcg once daily. 3. Vitamin D3 125 mcg once daily. 4. Digoxin 0.125 mg once a week. 5. Uloric 80 mg once daily. 6. Glipizide 5 mg once daily. 7. Glucosamine-chondroitin two tablets once daily. 8. Prednisone 15 mg once daily. 9. vitamins one tablet once daily. 10. Metoprolol 25 mg once daily. 11. Budesonide inhalers two puffs twice daily. 12. Apixaban 5 mg once daily. 13. Magnesium oxide 400 mg daily. 14. Midodrine 5 mg p.o. t.i.d. p.r.n. 15. Pantoprazole 40 mg once daily. 16. Sevelamer 800 mg p.o. b.i.d. 17. Zocor 20 mg at night. ALLERGIES: MORPHINE. PHYSICAL EXAMINATION: GENERAL: Alert and opens his eyes, but he is on a BiPAP, hard to follow commands. VITAL SIGNS: His blood pressures have been in the 80s to 90s systolic, sometimes dropping to 50s. Pulse rates have been in the one-teens to 120s. HEENT: NC/AT. Pupils are reactive to light. External ear and tympanic membranes appear normal. NECK: Supple. He does have 10 cm of jugular venous distention. No lymphadenopathy. No thyromegaly. LUNGS: Decreased air entry bilaterally. Rales heard in the bases. CARDIAC: S1, S2 heard. No S3, S4. No murmurs. No rubs. ABDOMEN: Soft, distended, nontender. No organomegaly. Positive bowel sounds. No mass, no rebound. EXTREMITIES: 1+ edema. Difficult to palpate dorsalis pedis and posterior tibials. No skin rash or joint swellings noted. NEURO: Appears grossly intact. LABORATORY DATA: White count is 15.2 with a hemoglobin of 11.3 and a platelet count of 195. Sodium 139, potassium 6.1, chloride of 92, CO2 of 25, BUN of 32, creatinine of 8.4, phosphorus of 7.8. His lactic acid was 8.7 yesterday and 3.0 today. ASSESSMENT AND PLAN: 1. Septic syndrome. He clearly appears to be septic. The fistula did not have any obvious sign of infection. He has had CT of the abdomen which did not show any evidence of infection either. He has received vancomycin and piperacillin. We will ask them to ___ the piperacillin after dialysis and we will also check a vancomycin level. I will start him on Raj-Synephrine drip. We will use metoprolol to control his heart rate. 2. Respiratory failure. He is currently on BiPAP. His oxygenation was fairly low. It is strictly to take off the fluid in the setting of low blood pressure. We will attempt with increasing phenylephrine and see how he does. 3. Hyperkalemia. We will treat with the dialysis. 4. He will probably need dialysis tomorrow as well. 5. Multiple other problems management per the Hospitalist. Jay Job ID: [id number] Doc ID: [id number] Matthew Reddy MD
[2019-07-31] MEDS: NOREPINEPHRINE BITARTRATE 16 MG in 0.9 % SODIUM CHLORIDE 234 ML IV SCH (17:00)
[2019-07-31] MEDS ORDERED: HEPARIN/NS 500 ML IV SCH (17:45)
--- NOTE | 2019-07-31 17:51 | Procedure Note ---
Procedures - Arterial Line Date of Procedure: 07/31/19 Time out performed: No Size (Gauge): 20 Technique used: guide wire technique Post-Procedure: dry sterile dressing placed, easily flushed, waveform correlation Patient tolerated procedure: well, no complications Complications: none Site: right, radial
[2019-07-31 21:10] LABS: Vancomycin,Random 13.5 ug/mL
[2019-07-31] MEDS: ACETAMINOPHEN 650 MG/65 ML BOTTLE IV PRN (21:18)
[2019-07-31] MEDS: SIMVASTATIN 20 MG TABLET PO SCH (21:47)
[2019-07-31] MEDS: HYDROCORTISONE CRM 1% TUBE 30GM TOPICAL SCH (22:52)
[2019-08-01] MEDS ORDERED: NOREPINEPHRINE BITARTRATE 4 MG/4 ML VIAL IV ONE (00:40)
[2019-08-01] MEDS: NOREPINEPHRINE BITARTRATE 16 MG in 0.9 % SODIUM CHLORIDE 234 ML IV SCH ×3 (00:46→17:51)
[2019-08-01] MEDS: INSULIN LISPRO 1 UNIT/0.01 ML UNIT SQ SCH ×2 (00:48→07:07)
[2019-08-01] MEDS: 0.9 % SODIUM CHLORIDE 250 ML IV SCH ×4 (02:53→16:21)
[2019-08-01] MEDS: PIPERACILLIN SODIUM/TAZOBACTAM 2.25 GM in DEXTROSE 5% IN WATER 50 ML IV SCH (05:55)
[2019-08-01] MEDS: 0.9 % SODIUM CHLORIDE 10 ML SYRINGE IV SCH (05:56)
[2019-08-01 06:53] LABS: Basophils # (Auto) 0.03 K/mcL (0.00-0.30); Basophils % (Auto) 0.2 % (0.0-2.0); Eosinophils % (Auto) 0.7 % (0.0-7.0); Granulocytes % (Auto) 83.7 % (38.0-78.0); Hematocrit 36.2 % (40.1-51.0); Hemoglobin 10.9 g/dL (13.7-17.5); Lymphocytes # (Auto) 0.84 K/mcL (1.50-4.80); Lymphocytes % (Auto) 5.9 % (15.5-49.0); Mean Cell Volume 94.3 fL (80.0-100.0); Mean Corpuscular HGB Conc 30.1 g/dL (31.0-36.0); Mean Platelet Volume 9.9 fL (7.4-10.4); Monocytes # (Auto) 1.36 K/mcL (0.10-0.90); Monocytes % (Auto) 9.5 % (1.0-12.0); Platelet Count 243 K/mcL (140-440); RBC 3.84 M/mcL (4.63-6.08); Red Cell Distribution Width 16.4 % (11.5-14.5); WBC 14.3 K/mcL (4.50-11.00)
[2019-08-01] MEDS: VASOPRESSIN 20 UNIT in DEXTROSE 5% IN WATER 99 ML IV SCH ×3 (07:06→16:59)
[2019-08-01 07:30] LABS: ALT/SGPT 25 U/l (0-40); AST/SGOT 89 U/l (0-37); Albumin/Globulin Ratio 0.7 (1.0-2.3); Alkaline Phosphatase 125 U/L (39-117); Bilirubin,Direct 0.3 mg/dL (0.0-0.3); Bilirubin,Total 0.5 mg/dL (0.0-1.0); Blood Urea Nitrogen 70 mg/dl (8-23); Calcium 8.7 mg/dl (8.6-10.4); Carbon Dioxide 20 mmol/L (22-30); Globulin 4.2 gm/dL (2.2-3.7); Glucose 248 mg/dL (70-105); Lactate Dehydrogenase 294 U/L (94-250); Triglycerides 210 mg/dl (<150); Uric Acid 2.3 mg/dL (2.5-8.0)
--- NOTE | 2019-08-01 07:31 | Internal Med Progress Note ---
Medical - PN: Subj Patient information: Note initiated : 08/01/19 at 7:28 am Service Date, if different from initiated Date: [] Patient: Ivan Robles a 64 y/o M admitted on 07/30/19 for RLQpain, nausea vomiting SOB. Chief Complaint: [] Interval history: Mr. Robles is a 64 year old M with a history of end-stage renal disease, status post failed renal transplant, now on home hemodialysis, obstructive sleep apnea , chronic steroid use, type 2 diabetes, hyperlipidemia, atrial fibrillation on anticoagulation who presents the ED with about 1 days of illness. Patient dialyzed yesterday. He normally gets dialysis 5 days a week at home. Postdialysis he had some nausea with little bit of emesis. Started developing some pain in his abdomen following that. At about 430 this morning he had a temperature to 103.1. He became progressively weak. Initially his was going to drive him to the hospital, he is too weak to do so and fell a couple times eventually prompting a call to EMS. In the emergency department, the patient is afebrile, he has tachycardia with atrial fibrillation/RVR, blood pressures are low normal (which is normal for him, he uses midodrine to help sustain blood pressure). However white count was 24,000 and lactate was 8.7. There is concern for sepsis given his presentation and fever earlier in the morning. Given his vague abdominal complaints, CT scan of the abdomen and pelvis was done, chest was also included. Does have some patchy atelectatic/infiltrative changes in the bases, and findings of nodularity and cyst versus mass in his transplanted kidney. However no evidence of biliary disease, no diverticulitis, no abscesses noted. The patient overall feels weak. Not necessarily dyspneic. He has not had a bowel movement last couple of days. He has had no recent antibiotic exposures. No ill contacts. He did get a flu shot this year. He is currently on prednis one at 15 mg a day. They have been attempting to wean down his steroids after he went off immunosuppression following the failure of his transplanted kidney. They weaned it down to 5, he became symptomatic and they increased it to 20, which he took for 3 days, now is in the middle of 15 mg daily. Glucoses have been well controlled, hemoglobin A1c in the 6% range at last check. 3/2 Patient somewhat somnolent confused today. BUN and creatinine have risen overnight. Poor IV access. Difficulty in obtaining accurate blood pressure due to limitations of where the cuff can be placed. However patient is mentating even with low readings. Do not feel this represents hypotension secondary to s epsis, but is his usual state. Does use midodrine daily. Cultures negative so far. multiple family discussions yesterday afternoon/evening. Patient made DNR and family does not want to transfer if he declines rather transition to comfort care currently patient is doing poorly. 3/3 Patient requiring 2 vasopressors Levophed and vasopressin. Systolics still in the 60s however patient still maintaining to a degree following some simple commands. Difficult to understand his verbalizations. Unable to perform hemodialysis yesterday secondary to hypotension. Elevated potassium today. Had another discussion with family today who was in the room talking with family and asking about possible transfer patient seems a note to transfer. Discussion with the family members they mention that he has mentioned to them in the past that he is tired and exhausted from his treatments and further dec line. Discussion with the family who had discussion with the patient, will transition to comfort care only. - Constitutional Vitals: Vital Signs Temp Pulse Resp BP Pulse Ox 98.7 F 123 H 18 53/24 96 08/01/19 04:00 08/01/19 07:11 08/01/19 07:11 07/31/19 17:21 08/01/19 07:11 Period Temp Pulse Resp BP Sys/Valerio Pulse Ox Last 24 Hr 97.2 F-101.2 F 56-144 15-41 33-103/14-87 85-96 Intake and Output 07/31/19 08/01/19 08/01/19 21:59 05:59 13:59 Intake Total 576 542 Output Total 458 0 Balance 118 542 Weight 154.221 kg Intake & Output: Intake & Output 07/31/19 08/01/19 08/01/19 21:59 05:59 13:59 Intake Total 576 542 Output Total 458 0 Balance 118 542 Weight 154.221 kg Intake: IV 576 542 Sodium Chloride 0.9% 250 ml @ 238 20 mls/hr IV .[id number] [facility] Rx#: [id number] Levophed 16 mg In Sodium 26 222 Chloride 0.9% 234 ml @ 10 MCG/ MIN 9.375 mls/hr IV Q24H [facility] Rx #:[id number] Neosynephrine/Vazculep 10 mg In 500 Sodium Chloride 0.9% 499 ml @ 0.5 MCG/KG/MIN 229.019 mls/hr IV [facility] Rx#:[id number] Zosyn 2.25 gm In Dextrose 5% in 50 Water 50 ml @ 100 mls/hr IV Q12H [facility] Rx#:[id number] Vasostrict 20 Unit In Dextrose 82 5% in Water 99 ml @ 0.04 UNIT/ MIN 12 mls/hr IV Q8H [facility] Rx#: [id number] Oral 0 Output: Void Amount 0 Hemodialysis UF 458 Exam: General: awake but drowsy , No acute Distress Eyes/N/T: EOMI, Head/Neck: neck supple, CV: RRR, 2/6 SM, Pulm: b/l rales, no wheezing Abd: soft, nontender, +BS x4 Ext: no clubbing/cyanosis, b/l LE + edema. LUE fistula Neuro: drowsy but awakens, moves all extremities, follows simple commands, unable to understand verbalizations Skin: warm/dry Medical - PN: Obj Da - Labs CBC & Chem 7: 08/01/19 05:15 08/01/19 05:15 Labs: Abnormal Lab Results 08/01/19 07/31/19 07/31/19 05:15 04:10 04:10 WBC 14.3 H 15.2 H RBC 3.84 L 3.98 L Hgb 10.9 L 11.3 L Hct 36.2 L 37.7 L MCHC 30.1 L 30.0 L RDW 16.4 H 16.5 H Gran % 83.7 H 87.2 H Lymph % (Auto) 5.9 L 7.2 L Gran # 11.95 H 13.25 H Lymph # (Auto) 0.84 L 1.10 L Mckinley # (Auto) 1.36 H VBG Lactic Acid Potassium 6.1 H* Chloride 92 L Anion Gap 22.0 H BUN 72 H Creatinine 8.4 H* Glucose 61 L Phosphorus 7.8 H* Magnesium 2.8 H GGT 68 H AST 38 H Lactate Dehydrogenase 325 H Globulin 3.9 H Albumin/Globulin Ratio 0.8 L Triglycerides 181 H 0307/30/19 07/30/19 20:25 13:00 13:00 WBC RBC Hgb Hct MCHC RDW Gran % Lymph % (Auto) Gran # Lymph # (Auto) Mckinley # (Auto) VBG Lactic Acid 3.0 H 8.7 H* Potassium Chloride 90 L Anion Gap 25.0 H BUN 52 H Creatinine 7.0 H* Glucose 114 H Phosphorus Magnesium GGT AST Lactate Dehydrogenase Globulin 3.8 H Albumin/Globulin Ratio Triglycerides 07/30/19 13:00 WBC 24.1 H RBC 4.37 L Hgb 12.6 L Hct MCHC 30.6 L RDW 16.6 H Gran % 88.1 H Lymph % (Auto) 3.5 L Gran # 21.27 H Lymph # (Auto) 0.85 L Mckinley # (Auto) 1.92 H VBG Lactic Acid Potassium Chloride Anion Gap BUN Creatinine Glucose Phosphorus Magnesium GGT AST Lactate Dehydrogenase Globulin Albumin/Globulin Ratio Triglycerides Meds: Medications Acetaminophen (Tylenol) 650 mg PO Q6HP PRN; Protocol PRN Reason: Per Pain Protocol/Fever > 101 Hydrocodone Bitart/Acetaminophen ([place] 5/325mg) 1 tab PO Q4HP PRN; Protocol PRN Reason: Per Pain Protocol Albuterol/Ipratropium (Duoneb) 3 ml NEB Q4HP PRN PRN Reason: Dyspnea Apixaban (Eliquis) 5 mg PO BID [facility] Last Admin: 07/31/19 21:47 Dose: Not Given Documented by: Calcitriol (Rocaltrol) 0.25 mcg PO QDAY [facility] Last Admin: 07/31/19 09:48 Dose: 0.25 mcg Documented by: Dextrose (Dextrose 50%) 0 ml IV UD PRN PRN Reason: Hypoglycemia Diagnostic Test (Pha) (Accu-Chek) 1 each FS ACHS [facility] Last Admin: 08/01/19 07:03 Dose: 1 each Documented by: Docusate Sodium (Colace) 100 mg PO BID [facility] Last Admin: 07/31/19 21:47 Dose: Not Given Documented by: Glucose (Insta-Glucose) 15 gm PO PRN PRN PRN Reason: Hypoglycemia Hydrocortisone (Hc Crm 1%) 1 dose TOPICAL BID [facility] Last Admin: 07/31/19 22:52 Dose: 1 dose Documented by: Levofloxacin (Levaquin) 500 mg in 100 mls @ 100 mls/hr IV Q48H [facility]; Protocol Piperacillin Sod/Tazobactam (Sod 2.25 gm/ Dextrose) 50 mls @ 100 mls/hr IV Q12H [facility]; Protocol Last Admin: 08/01/19 05:55 Dose: 100 mls/hr Documented by: Sodium Chloride (Sodium Chloride 0.9%) 250 mls @ 20 mls/hr IV .[id number] [facility] Last Admin: 08/01/19 02:53 Dose: 20 mls/hr Documented by: Vasopressin 20 unit/ Dextrose 100 mls @ 12 mls/hr IV Q8H [facility]; Protocol Last Admin: 07/31/19 22:46 Dose: 0.04 unit/min, 12 mls/hr Documented by: Sodium Chloride (Sodium Chloride 0.9%) 250 mls @ 20 mls/hr IV .[id number] [facility] Last Admin: 08/01/19 02:53 Dose: Not Given Documented by: Sodium Chloride (Sodium Chloride 0.9%) 250 mls @ 20 mls/hr IV .[id number] [facility] Last Admin: 08/01/19 03:50 Dose: Not Given Documented by: Heparin Sodium/Sodium Chloride (Heparin/Ns) 500 mls @ 0 mls/hr IV .Q0M [facility]; Protocol Acetaminophen (Ofirmev) 650 mg in 65 mls @ 130 mls/hr IV Q6HP PRN; Protocol PRN Reason: PAIN/FEVER > 101 Last Admin: 07/31/19 21:18 Dose: 130 mls/hr Documented by: Norepinephrine Bitartrate 16 (mg/ Sodium Chloride) 250 mls @ 9.375 mls/hr IV Q8H [facility]; Protocol Insulin Human Lispro (Humalog) 0 unit SQ ACHS [facility]; Protocol Last Admin: 08/01/19 07:07 Dose: 3 unit Documented by: Lactulose (Cephulac) 10 gm PO DAILYP PRN PRN Reason: Constipation Magnesium Oxide (Magnesium Oxide) 400 mg PO DAILY [facility] Last Admin: 07/31/19 09:48 Dose: 400 mg Documented by: Metoprolol Succinate (Toprol Xl) 25 mg PO DAILY [facility] Last Admin: 07/31/19 11:13 Dose: Not Given Documented by: Midodrine (Midodrine Hcl) 5 mg PO DAILY [facility] Last Admin: 07/31/19 09:54 Dose: 5 mg Documented by: Midodrine (Midodrine Hcl) 5 mg PO TIDP PRN PRN Reason: Hypotension Last Admin: 07/31/19 12:53 Dose: 5 mg Documented by: Multivitamins/Minerals (Ocuvite) 1 tab PO DAILY [facility] Last Admin: 07/31/19 09:48 Dose: 1 tab Documented by: Ondansetron HCl (Zofran) 4 mg IV Q4HP PRN; Protocol PRN Reason: Nausea And Vomiting Pantoprazole Sodium (Protonix) 40 mg PO ACB [facility] Last Admin: 07/31/19 08:24 Dose: 40 mg Documented by: Prednisone (Prednisone) 15 mg PO QAMCC [facility] Last Admin: 07/31/19 08:24 Dose: 15 mg Documented by: Senna (Senokot) 2 tab PO HSP PRN PRN Reason: Constipation Sevelamer Carbonate (Renvela) 800 mg PO BIDCC [facility] Last Admin: 07/31/19 18:51 Dose: Not Given Documented by: Simvastatin (Zocor) 20 mg PO HS [facility] Last Admin: 07/31/19 21:47 Dose: Not Given Documented by: Sodium Chloride (Saline Flush) 10 ml IV Q8 [facility] Last Admin: 08/01/19 05:56 Dose: 10 ml Documented by: Vancomycin HCl (Vancomycin Per Pharmacy) 1 order IV UD [facility]; Protocol Medical - PN: A/P - Time Spent With Patient Total time spent is greater than 50% in coordination of care (as documented) at patient's floor/unit and/or counseling patient: - Narrative A/P Narrative: A: *Septic shock: suspect source entry from daily HD sessions -Leukocytosis/lactate. Concern leukocytosis/fever/lactate represent infection, which would be septic shock w/endorgan dysfxn (lactate elevation). -Possible pneumonia, though he does not have prominent pulmonary symptoms -Bloodstream infection certainly concerning with his 5 times a week hemodialysis. He dialyzes with a shunt on the left arm, which has no surrounding erythema or evidence of infection. -No evidence of biliary disease on scanning, no other intra-abdominal process noted. -He is not having diarrhea nor has inflammatory change in the colon, but always concerned about C. difficile with a white count is high. *ESRD, Dialyzes 5 times a week at home with hemodialysis: follows with dr. vail -failed renal transplant -not tolerating HD *Hyperkalemia: *Hypotension: Patient takes midodrine daily with up to 3 other doses a day as n eeded for low blood pressure. -on multiple vasopressors and unable to maintain *Acute hypoxic/hypercapnic respiratory failure: -on bipap *Atrial fibrillation: On metoprolol and weekly digoxin for rate control. *Abnormal CT: Cyst versus mass and transplanted kidney, scattered nodules in the lungs, particularly on right. -Ultrasound of transplanted kidney with evidence of cyst and not mass -We will likely need follow-up CT in convalescence *Type 2 diabetes mellitus on glipizide at home with good control *TRAVIS: On CPAP at home. *Obese *COPD: cont home IH's *Goals of care: Patient not responding to therapy and declining. -Guarded prognosis Plan: -transition to comfort care -pt and family support CODE STATUS: DNR Procedures - Arterial Line Size (Gauge): 20
[2019-08-01 07:55] LABS: Chloride 89 mmol/L (96-108); Glomerular Filtration Rate 6; Phosphorous 9.6 mg/dL (2.7-4.5)
[2019-08-01] MEDS: ACETAMINOPHEN 650 MG/65 ML BOTTLE IV PRN (07:58)
[2019-08-01] MEDS ORDERED: VANCOMYCIN 1,500 MG in 0.9 % SODIUM CHLORIDE 500 ML IV ONE (09:00)
[2019-08-01] MEDS ORDERED: LEVOFLOXACIN 500 MG/100 ML BAG IV SCH (09:00)
[2019-08-01] MEDS ORDERED: methylPREDNISolone SOD SUCC 40 MG/ML VIAL IV ONE (09:45)
--- NOTE | 2019-08-01 09:51 | Nephrology Progress Note ---
Subjective Patient information: Note initiated : 08/01/19 at 9:47 am Service Date, if different from initiated Date: [] Patient: Ivan Robles 64 y/o M admitted on 07/30/19 for RLQpain, nausea vomiting SOB. Chief Complaint: [] We attempted dialysis yesterday and was stopped because of tachycardia and hypotension. Today he is more awake but still hypotensive and hypoxic. Objective - Vital Signs Vital signs: Vital Signs Temp Pulse Resp BP Pulse Ox 08/01/19 08:15 99 F 112 H 37 H 08/01/19 08:00 116 H 24 H 08/01/19 07:58 103.7 F H 08/01/19 07:54 110 H 34 H 58/26 08/01/19 07:45 116 H 28 H 08/01/19 07:30 103.7 F H 117 H 22 96 08/01/19 07:15 117 H 35 H 08/01/19 07:11 123 H 18 96 08/01/19 07:00 116 H 35 H 94 08/01/19 06:45 117 H 25 H 08/01/19 06:30 119 H 19 08/01/19 06:15 119 H 26 H 08/01/19 06:00 116 H 22 95 08/01/19 05:45 114 H 27 H 08/01/19 05:30 128 H 27 H 08/01/19 05:15 127 H 29 H 08/01/19 05:00 130 H 37 H 96 08/01/19 04:45 115 H 36 H 08/01/19 04:30 124 H 35 H 08/01/19 04:15 116 H 38 H 08/01/19 04:00 98.7 F 37 H 08/01/19 03:45 125 H 39 H 08/01/19 03:30 131 H 36 H 08/01/19 03:15 135 H 35 H 08/01/19 03:00 122 H 24 H 90 08/01/19 02:45 122 H 27 H 08/01/19 02:30 120 H 29 H 08/01/19 02:15 132 H 31 H 08/01/19 02:00 116 H 28 H 90 08/01/19 01:45 129 H 36 H 08/01/19 01:30 131 H 36 H 08/01/19 01:15 123 H 38 H 08/01/19 01:00 110 H 32 H 92 08/01/19 00:45 130 H 37 H 03 00:30 133 H 28 H 08/01/19 00:15 129 H 35 H 08/01/19 00:08 101.2 F H 133 H 28 H 90 07/31/19 23:10 107 H 24 H 92 07/31/19 21:42 132 H 30 H 07/31/19 21:15 95 H 25 H 92 07/31/19 20:17 129 H 26 H 07/31/19 20:00 92 07/31/19 19:42 120 H 32 H 91 07/31/19 17:21 130 H 34 H 53/24 94 07/31/19 17:16 120 H 15 57/34 07/31/19 17:11 128 H 26 H 59/31 07/31/19 17:07 128 H 29 H 45/20 07/31/19 17:01 119 H 31 H 58/30 07/31/19 16:57 118 H 23 H 76/48 91 07/31/19 16:56 117 H 26 H 85/64 07/31/19 16:50 33 H 75/41 07/31/19 16:48 56 L 32 H 93 07/31/19 16:45 97.3 F 109 H 75/41 07/31/19 16:36 106 H 26 H 52/32 07/31/19 16:31 113 H 26 H 57/22 07/31/19 16:26 93 H 28 H 43/26 07/31/19 16:25 122 H 43/26 07/31/19 16:20 137 H 24 H 46/14 92 07/31/19 16:19 127 H 46/14 07/31/19 16:01 97.4 F 136 H 30 H 45/30 88 L 02 16:00 126 H 45/30 07/31/19 15:57 137 H 27 H 51/22 07/31/19 15:53 130 H 41 H 49/28 07/31/19 15:46 144 H 31 H 47/24 07/31/19 15:45 135 H 47/24 07/31/19 15:44 142 H 31 H 45/31 07/31/19 15:41 140 H 41 H 46/20 07/31/19 15:36 137 H 31 H 65/29 90 07/31/19 15:31 133 H 32 H 69/39 07/31/19 15:30 124 H 69/39 07/31/19 15:26 138 H 33 H 57/44 91 07/31/19 15:24 141 H 32 H 55/34 87 L 07/31/19 15:19 137 H 33 H 52/38 07/31/19 15:16 133 H 32 H 61/30 07/31/19 15:15 131 H 38 H 52/38 92 07/31/19 15:04 121 H 28 H 57/45 07/31/19 14:55 97.2 F 121 H 57/45 07/31/19 14:03 118 H 28 H 55/23 90 07/31/19 14:00 91 07/31/19 13:14 118 H 24 H 103/87 07/31/19 13:01 136 H 20 58/45 07/31/19 12:40 118 H 37 H 93 07/31/19 12:23 125 H 33 H 55/41 89 L 07/31/19 12:05 125 H 35/26 94 07/31/19 12:01 122 H 33/16 96 07/31/19 11:42 113 H 88 L 07/31/19 11:01 115 H 29 H 52/29 85 L 07/31/19 10:04 123 H 28 H 07/31/19 10:01 122 H 27 H 83/68 Intake and Output 07/31/19 08/01/19 08/01/19 21:59 05:59 13:59 Intake Total 641 542 50 Output Total 458 0 Balance 183 542 50 Intake: IV 641 542 50 Sodium Chloride 0.9% 250 ml @ 238 20 mls/hr IV .[id number] [facility] Rx#: [id number] Levophed 16 mg In Sodium 26 222 Chloride 0.9% 234 ml @ 10 MCG/ MIN 9.375 mls/hr IV Q24H [facility] Rx #:[id number] Neosynephrine/Vazculep 10 mg In 500 Sodium Chloride 0.9% 499 ml @ 0.5 MCG/KG/MIN 229.019 mls/hr IV [facility] Rx#:[id number] Zosyn 2.25 gm In Dextrose 5% in 50 50 Water 50 ml @ 100 mls/hr IV Q12H [facility] Rx#:[id number] Vasostrict 20 Unit In Dextrose 82 5% in Water 99 ml @ 0.04 UNIT/ MIN 12 mls/hr IV Q8H [facility] Rx#: [id number] Oral 0 Output: Void Amount 0 Hemodialysis UF 458 Other: Weight 340 lb Intake & Output: Intake & Output 07/31/19 08/01/19 08/01/19 21:59 05:59 13:59 Intake Total 641 542 50 Output Total 458 0 Balance 183 542 50 Weight 340 lb Intake: IV 641 542 50 Sodium Chloride 0.9% 250 ml @ 238 20 mls/hr IV .[id number] [facility] Rx#: [id number] Levophed 16 mg In Sodium 26 222 Chloride 0.9% 234 ml @ 10 MCG/ MIN 9.375 mls/hr IV Q24H [facility] Rx #:[id number] Neosynephrine/Vazculep 10 mg In 500 Sodium Chloride 0.9% 499 ml @ 0.5 MCG/KG/MIN 229.019 mls/hr IV [facility] Rx#:[id number] Zosyn 2.25 gm In Dextrose 5% in 50 50 Water 50 ml @ 100 mls/hr IV Q12H [facility] Rx#:[id number] Vasostrict 20 Unit In Dextrose 82 5% in Water 99 ml @ 0.04 UNIT/ MIN 12 mls/hr IV Q8H [facility] Rx#: [id number] Oral 0 Output: Void Amount 0 Hemodialysis UF 458 - General Appearance General appearance: well-nourished EENT: ATNC Neck: JVD Respiratory: wheezing, rales Cardiology: rapid rhythm Gastrointestinal: no tenderness Integumentary: no rash Neurologic: no focal deficit - Lab 08/01/19 05:15 08/01/19 05:15 Most recent lab results Calcium 8.7 mg/dl (8.6-10.4) 08/01/19 05:15 Phosphorus 9.6 mg/dL (2.7-4.5) H* 08/01/19 05:15 Magnesium 3.0 mg/dL (1.6-2.5) H 08/01/19 05:15 Assessment and Plan (1) Renal failure Status: Acute Comment: ESRD on home hemo. He has sepsis with unclear source. Remain hypotensive and tachycardia and has low oxygenation. His potassium is high. Family and Dr. Orozco has made a decision to go comfort care and I agree with that decision as further treatment is difficult and probably futile as well. Qualifiers: Acute renal failure type: with acute renal cortical necrosis
--- NOTE | 2019-08-01 10:16 | Ultrasound Report ---
History: Evaluate dialysis arteriovenous fistula in the left arm, fever FINDINGS: There is a surgically created arteriovenous fistula on the left upper arm connecting the brachial artery with the cephalic vein. Normal blood flow is present in the artery and vein. Within the artery, above the anastomosis peak systolic flow velocity is 53 cm/s. Below the fistula it is 58 cm. At the anastomosis it is 245 cm/s. There is no apparent narrowing or thrombosis of the fistula. 2 cm above the fistula the cephalic vein is 6 mm in diameter, 6 cm distally it measures 14 mm and 8 cm distally it measures 7 mm. These at the sites of prior venous access. There is no evidence of hematoma, abscess or subcutaneous edema. IMPRESSION: Normal arterial venous fistula in the left upper arm. There is no evidence of stenosis, thrombosis or infection Interpreted and Authenticated by: Abel Ponce 08/01/19
[2019-08-01] MEDS ORDERED: LACTOPEROXI/GLUC OXID/POT THIO 1 EACH GEL..EA. TOPICAL PRN (10:47)
[2019-08-01] MEDS ORDERED: ALBUTEROL SULFATE 2.5 MG/3 ML NEBULIZER NEB PRN (10:47)
[2019-08-01] MEDS ORDERED: LORazepam 2 MG/ML VIAL IV PRN (10:47)
[2019-08-01] MEDS: PANTOPRAZOLE 40 MG TABLET PO SCH (13:34)
[2019-08-01] MEDS: SEVELAMER 800 MG TABLET PO SCH (13:35)
[2019-08-01] MEDS: predniSONE 5 MG TABLET PO SCH (13:35)
[2019-08-01] MEDS: DOCUSATE SODIUM 100 MG CAPSULE PO SCH (13:36)
[2019-08-01] MEDS: APIXABAN 5 MG TABLET PO SCH (13:37)
[2019-08-01] MEDS: HYDROCORTISONE CRM 1% TUBE 30GM TOPICAL SCH (13:37)
[2019-08-01] MEDS: MAGNESIUM OXIDE 400 MG TABLET PO SCH (13:37)
[2019-08-01] MEDS: MIDODRINE 5 MG TABLET PO SCH (13:37)
[2019-08-01] MEDS: METOPROLOL SUCCINATE 25 MG TAB.XL.24H PO SCH (13:38)
[2019-08-01] MEDS: VIT A,C & E/LUTEIN/MINERALS TABLET PO SCH (13:38)
[2019-08-01] MEDS: CALCITRIOL 0.25 MCG CAPSULE PO SCH (13:38)
[2019-08-01] MEDS ORDERED: 0.9 % SODIUM CHLORIDE 10 ML SYRINGE IV SCH (14:00)
[2019-08-01] MEDS ORDERED: PIPERACILLIN SODIUM/TAZOBACTAM 2.25 GM in DEXTROSE 5% IN WATER 50 ML IV SCH (14:00)
--- NOTE | 2019-08-01 22:59 | Death Note ---
Discharge Sum: Prov - Provider Patient information: Note initiated : 08/01/19 at 10:58 pm Service Date, if different from initiated Date: [] Patient: Ivan Robles 64 y/o M admitted on 07/30/19 for RLQpain, nausea vomiting SOB. Chief Complaint: [] Primary care physician: Nicol Mcdowell Consults: 07/30/19 Consult to Physician [CONS] Stat Comment: Consulting Provider: Jeanette Deluca Reason For Exam: Physician to Consult 08/01/19 21:48 Consult to Physician [CONS] Routine Comment: Consulting Provider: Sarah Smith Reason For Exam: Physician to Consult Discharge Sum: Summary - Date and Time Date of admission: 07/30/19 19:31 Date of : 08/01/19 Time of : 21:15 - Summary Details: Mr. Robles is a 64 year old M with a history of end-stage renal disease, status post failed renal transplant, now on home hemodialysis, obstructive sleep apnea, chronic steroid use, type 2 diabetes, hyperlipidemia, atrial fibrillation on anticoagulation who presents the ED with about 1 days of illness. Patient dialyzed yesterday. He normally gets dialysis 5 days a week at home. Postdialysis he had some nausea with little bit of emesis. Started developing some pain in his abdomen following that. At about 430 this morning he had a temperature to 103.1. He became progressively weak. Initially his was going to drive him to the hospital, he is too weak to do so and fell a couple times eventually prompting a call to EMS. In the emergency department, the patient is afebrile, he has tachycardia with atrial fibrillation/RVR, blood pressures are low normal (which is normal for him, he uses midodrine to help sustain blood pressure). However white count was 24,000 and lactate was 8.7. There is concern for sepsis given his presentation and fever earlier in the morning. Given his vague abdominal complaints, CT scan of the abdomen and pelvis was done, chest was also included. Does have some patchy atelectatic/infiltrative changes in the bases, and findings of nodularity and cyst versus mass in his transplanted kidney. However no evidence of biliary disease, no diverticulitis, no abscesses noted. The patient overall feels weak. Not necessarily dyspneic. He has not had a bowel movement last couple of days. He has had no recent antibiotic exposures. No ill contacts. He did get a flu shot this year. He is currently on prednisone at 15 mg a day. They have been attempting to wean down his steroids after he went off immunosuppression following the failure of his transplanted kidney. They weaned it down to 5, he became symptomatic and they increased it to 20, which he took for 3 days, now is in the middle of 15 mg daily. Glucoses have been well controlled, hemoglobin A1c in the 6% range at last check. 3/2 Patient somewhat somnolent confused today. BUN and creatinine have risen overnight. Poor IV access. Difficulty in obtaining accurate blood pressure due to limitations of where the cuff can be placed. However patient is mentating even with low readings. Do not feel this represents hypotension secondary to sepsis, but is his usual state. Does use midodrine daily. Cultures negative so far. multiple family discussions yesterday afternoon/evening. Patient made DNR and family does not want to transfer if he declines rather transition to comfort care currently patient is doing poorly. 3/3 Patient requiring 2 vasopressors Levophed and vasopressin. Systolics still in the 60s however patient still maintaining to a degree following some simple commands. Difficult to understand his verbalizations. Unable to perform hemodialysis yesterday secondary to hypotension. Elevated potassium today. Had another discussion with family today who was in the room talking with family and asking about possible transfer patient seems a note to transfer. Discussion with the family members they mention that he has mentioned to them in the past that he is tired and exhausted from his treatments and further decline. Discussion with the family who had discussion with the patient, will transition to comfort care only. *Patient at 2115 hours with family present A: *Septic shock: suspect source entry from daily HD sessions -Leukocytosis/lactate. Concern leukocytosis/fever/lactate represent infection, which would be septic shock w/endorgan dysfxn (lactate elevation). -Possible pneumonia, though he does not have prominent pulmonary symptoms -Bloodstream infection certainly concerning with his 5 times a week hemodialysis. He dialyzes with a shunt on the left arm, which has no surrounding erythema or evidence of infection. -No evidence of biliary disease on scanning, no other intra-abdominal process noted. -He is not having diarrhea nor has inflammatory change in the colon, but always concerned about C. difficile with a white count is high. *ESRD, Dialyzes 5 times a week at home with hemodialysis: follows with dr. vail -failed renal transplant -not tolerating HD *Hyperkalemia: *Hypotension: Patient takes midodrine daily with up to 3 other doses a day as needed for low blood pressure. -on multiple vasopressors and unable to maintain *Acute hypoxic/hypercapnic respiratory failure: -on bipap *Atrial fibrillation: On metoprolol and weekly digoxin for rate control. *Abnormal CT: Cyst versus mass and transplanted kidney, scattered nodules in the lungs, particularly on right. -Ultrasound of transplanted kidney with evidence of cyst and not mass -We will likely need follow-up CT in convalescence *Type 2 diabetes mellitus on glipizide at home with good control *TRAVIS: On CPAP at home. *Obese *COPD: cont home IH's *Goals of care: Patient not responding to therapy and declining. -Guarded prognosis - Additional Data Attending physician: Jeanette Deluca
== END 2019-08-01 21:15 | disposition expired | DRG 871 ==
LOC: ED 12:33 → ICU 19:31 → MEDSUR 08-01 20:58
PROVIDERS: ADMIT Internal Medicine; ATTEND Internal Medicine